=== PATIENT | female | born 1985 | race Caucasian/White ===

== ENCOUNTER 2023-02-09 05:45 | Inpatient (IN) ==
[2023-02-09] MEDS ORDERED: Sodium Citrate/Citric Acid LIQ 15 ML UDC PO ONE (06:00)
[2023-02-09] MEDS ORDERED: Lactated Ringers 1000 ml BAG 1,000 ML IV SCH ×2 (06:00→10:00)
[2023-02-09] MEDS ORDERED: Buffered Lidocaine 1% SYRIN 1 ml INTRADERM ONE ×2 (06:00)
[2023-02-09] MEDS ORDERED: ceFOXitin 2 GM IVPREMIX 2 GM/50 ML BAG IVPB ONE (06:00)
[2023-02-09 06:41] LABS: ABS Eosinophils 0.1 10^3/uL (0.0-0.5); ABS Monocytes 0.7 10^3/uL (0.0-0.9); ABS Neutrophils 4.9 10^3/uL (1.5-7.6); ABS Nucleated RBC 0.01 10^3/ul; Eosinophil % 1.1 %; Hematocrit 38.4 % (35-45); Hemoglobin 13.3 g/dL (11.5-14.3); Lymphocyte % 26.1 %; Mean Corpuscular Hemoglobin 29.1 pg (27-33); Mean Corpuscular Hgb Conc 34.8 g/dL (31-36); Mean Corpuscular Volume 83.6 fL (80-97); Mean Platelet Volume 11.1 fL (7.5-11.2); Nucleated Red Blood Cells % 0.2 %/100WBC (0.0-0.8); Platelet Count 123 10^3/uL (150-450); Red Blood Count 4.59 10^6/uL (3.63-4.92); White Blood Count 7.8 10^3/uL (3.8-11.8)
[2023-02-09] MEDS ORDERED: Ondansetron 4 mg VIAL 2 MG/ML 2 ml VIAL ONE (07:35)
[2023-02-09] MEDS ORDERED: Dexamethasone IV 4 MG/ML VIAL 1 ml VIAL ONE (07:35)
[2023-02-09] MEDS ORDERED: Oxytocin 10 UNITS/ML 1 ML VIAL ONE (07:35)
[2023-02-09] MEDS ORDERED: Morphine PF AMP (0.5MG/ML) 5 MG/10 ML AMP ONE (07:38)
[2023-02-09] MEDS ORDERED: Acetaminophen IV 1 GM/100ML 1,000 MG/100 ML BAG IV ONE (08:40)
[2023-02-09] MEDS ORDERED: fentaNYL 100 mcg/2 ml 50 MCG/ML VIAL IV PRN (08:44)
[2023-02-09] MEDS ORDERED: Naloxone 0.4 mg VIAL 0.4 mg/ml 1 ml VIAL IV PRN (08:44)
[2023-02-09] MEDS ORDERED: Metoclopramide 5 MG/ML VIAL (10 mg) IV PRN (08:47)
[2023-02-09] MEDS ORDERED: Ondansetron 4 mg VIAL 2 MG/ML 2 ml VIAL IV PRN (08:47)
[2023-02-09] MEDS ORDERED: Naloxone 0.4 mg VIAL 0.4 mg/ml 1 ml VIAL IV PUSH PRN (08:47)
[2023-02-09] MEDS ORDERED: Acetaminophen IV 1 GM/100ML 1,000 MG/100 ML BAG IV PRN (08:47)
[2023-02-09 09:30] LABS: Urine Appearance Clear; Urine Bilirubin Negative (Negative); Urine Blood Negative (Negative); Urine Color Straw; Urine Glucose Negative (Negative); Urine Ketones Negative (Negative); Urine Nitrite Negative (Negative); Urine Protein Negative (Negative); Urine Specific Gravity 1.003 (1.002-1.030); Urine Urobilinogen Negative (Negative)
[2023-02-09] MEDS ORDERED: Dibucaine 1% OINT 28.35 GM TUBE PR PRN (09:32)
[2023-02-09] MEDS ORDERED: Witch Hazel PAD JAR TOPICAL PRN (09:32)
[2023-02-09] MEDS ORDERED: Glycerin ADULT 2.4 gm SUPP PR PRN (09:32)
[2023-02-09 10:03] LABS: Urine Benzodiazepine Screen None Detected (None Detect); Urine Cannabinoids Screen None Detected (None Detect); Urine Opiates Screen None Detected (None Detect)
[2023-02-09] MEDS ORDERED: Oxytocin in LR 20,000 MILLI.UNIT/1,000 ML BAG IV SCH (11:15)
[2023-02-09 17:56] LABS: ABS Monocytes 0.7 10^3/uL (0.0-0.9); ABS Neutrophils 15.1 10^3/uL (1.5-7.6); ABS Nucleated RBC 0.01 10^3/ul; Eosinophil % 0.1 %; Hematocrit 39.3 % (35-45); Hemoglobin 13.3 g/dL (11.5-14.3); Lymphocyte % 6.2 %; Mean Corpuscular Hemoglobin 28.4 pg (27-33); Mean Corpuscular Hgb Conc 33.8 g/dL (31-36); Mean Corpuscular Volume 84.1 fL (80-97); Mean Platelet Volume 11.6 fL (7.5-11.2); Platelet Count 118 10^3/uL (150-450); Red Blood Count 4.68 10^6/uL (3.63-4.92); Red Cell Distribution Width 13.9 % (12-17); White Blood Count 16.9 10^3/uL (3.8-11.8)
[2023-02-09 18:35] LABS: Calcium 8.4 mg/dL (8.6-10.3); Potassium 4.2 mmol/L (3.5-5.0); Total Bilirubin 0.3 mg/dL (0.2-1.0)
[2023-02-09 18:41] LABS: Albumin/Globulin Ratio 1.3 (1-3); Creatinine, Serum 0.77 mg/dL (0.51-0.95); Globulin 2.4 g/dL (2-4); Total Protein 5.4 g/dL (6.4-8.9); eGFR CKD-EPI 100.6 (>60)
[2023-02-09 19:10] LABS: Urine TP Concentration < 5 mg/dL
[2023-02-09 19:15] LABS: Urine Creatinine Concentration 7.56 mg/dL (20.00-320.00); Urine TP Creat Ratio 0.66 mg/mg
[2023-02-10 06:58] LABS: ABS Monocytes 1.2 10^3/uL (0.0-0.9); ABS Neutrophils 13.3 10^3/uL (1.5-7.6); Eosinophil % 0.2 %; Hematocrit 34.9 % (35-45); Hemoglobin 11.6 g/dL (11.5-14.3); Lymphocyte % 11.9 %; Mean Corpuscular Hemoglobin 28.4 pg (27-33); Mean Corpuscular Hgb Conc 33.4 g/dL (31-36); Mean Platelet Volume 11.8 fL (7.5-11.2); Platelet Count 126 10^3/uL (150-450); Red Cell Distribution Width 13.7 % (12-17); White Blood Count 16.5 10^3/uL (3.8-11.8)
== END 2023-02-11 15:29 | disposition home or self-care (01) | DRG 788 ==
LOC: MCHOB 05:45
PROVIDERS: ADMIT Obstetrics & Gynecology; ATTEND Obstetrics & Gynecology